=== PATIENT | female | born 1940 | race Caucasian/White ===

== ENCOUNTER 2016-10-11 00:11 | Emergency (ER) | payer OTHER, BC ==
[~2016-10-11] VITALS: Ht 167.6 cm; Wt 143.9 kg
[~2016-10-11 00:11] MED LIST: ALBUTEROL SULF8.5 GM IH; ALEVE220 MG PO; ASPIR 8181 M1 PO; ASPIR-LOW81 MG PO; ASTELIN137 MCG/0. NS; ASTEPRO 0.15%30 ML BOTH NARES; BACTRIM,SEPT1 TABLET PO; BIOTIN 5000MCG PO; BIOTIN2500 MCG PO; BROVANA15 MCG/2 M IH; BUDESONIDE0.5 MG/2 M IH; CALCITRATE + D1 EACH PO; CALCIUM CITRATE PO; CARDIZEM CD,CA240 MG PO; CARDIZEM CD240 MG PO; CARDIZEM SR120 MG PO; CENTRUM SILVER1 EAC3 PO; CITRACAL PO; CLARINEX5 MG PO; COUMADIN5 MG PO; DESYREL100 MG PO; DILAUDID2 MG PO; EFFEXOR XR150 MG PO; FLONASE16 G1 BOTH NARES; FLOVENT DISKUS1 DIS2 IH; GABAPENTIN100 MG PO; HYDROCHLOROTHIA25 MG PO; IBUPROFEN200 M1 PO; IMODIUM A-1 MG/7.5 M PO; LOMOTIL TABLET1 EACH PO; METOPROLOL TART25 MG PO; MULTIVITAMIN1 EAC2 PO; NITROSTAT0.4 MG SL; NORVASC5 MG PO; NYSTOP60 GM TP; PRILOSEC20 MG PO; PRILOSEC40 MG PO; PROAIR HFA8.5 GM IH; PROVENTIL,2.5 MG/3 M IH; PULMICORT0.5 MG/21 IH; SAM-E400 MG PO; SPIRIVA1 INHALATI IH; TESSALON PERLE100 MG PO; TRAZODONE HCL50 MG PO; VALTREX1000 MG PO; VENLAFAXINE HC150 MG PO; VITAMIN B-122500 MCG SL; VITAMIN B-125000 MCG SL; VITAMIN B-6100 MG PO; VITAMIN B12-FO1 EACH PO; VITAMIN B6; VITAMIN D-32000 UNI1 PO; VITAMIN D-32000 UNIT PO; VITAMIN D32000 UNI1 PO; VITAMIN E400 UNIT PO; WELLBUTRIN XL150 MG PO; WELLBUTRIN XL300 MG PO
[2016-10-11 01:10] LABS: HEMATOCRIT 46.6 % (36.0-46.0); MCH 27.8 PG (29.0-34.0); MCHC 31.1 G/DL (30.0-36.0); MCV 89.4 FL (83-99); MEAN PLAT.VOLUME 9.9 uM^3 (9.5-12.4); PLATELET COUNT 270 K/uL (156-360); RBC DIS.WIDTH-CV 15.2 % (11.8-14.6); RBC DIS.WIDTH-SD 49.4 % (39-53); RED BLOOD COUNT 5.21 M/uL (3.80-5.20); WHITE BLOOD COUNT 13.5 K/uL (4.1-10.2)
[2016-10-11 01:21] LABS: CHLORIDE 107 mEq/L (99-109); POTASSIUM 4.4 mEq/L (3.7-5.4); SODIUM 143 mEq/L (136-147)
[2016-10-11 01:23] LABS: GLUCOSE 112 mg/dL (70-99)
[2016-10-11 01:24] LABS: ANION GAP 9 MEQ/L (2-14)
[2016-10-11 01:25] LABS: TOTAL BILIRUBIN 0.2 mg/dL (0.0-1.0)
[2016-10-11 01:26] LABS: ALKALINE PHOSPHATASE 89 IU/L (3-129)
[2016-10-11 01:27] LABS: GFR ESTIMATE (CALCULATED) > 59 mL/min/
[2016-10-11 01:28] LABS: UREA NITROGEN (BUN) 24 mg/dL (9-23)
[2016-10-11 01:30] LABS: LIPASE 149 U/L (1.0-51.0)
[2016-10-11 02:43] LABS: ADD MIUA? NO; BILIRUBIN NEGATIVE; BLOOD NEGATIVE; COLOR YELLOW ((YELLOW)); GLUCOSE (STRIP) NEGATIVE; KETONES NEGATIVE; LEUKOCYTES NEGATIVE; NITRITE NEGATIVE; PROTEIN (STRIP) NEGATIVE; SPECIFIC GRAVITY 1.024 (1.000-1.030); UCUL ADDED? NO; UROBILINOGEN 0.2 MG/DL (0.2-1.0)
[2016-10-11] MEDS ORDERED: ZOFRAN4 MG PO (03:50)
[2016-10-11 04:43] VITALS: BP 148/83
== END 2016-10-11 04:34 | disposition home or self-care (01) ==
LOC: EME → EDBD 00:11 → EME 00:11
PROVIDERS: Emergency Medicine
DX: K85.90 Acute pancreatitis without necrosis or infection, unspecified (principal); I10 Essential (primary) hypertension; I25.2 Old myocardial infarction; Z98.84 Bariatric surgery status; Z96.651 Presence of right artificial knee joint; Z85.42 Personal history of malignant neoplasm of other parts of uterus; Z88.2 Allergy status to sulfonamides; Z88.1 Allergy status to other antibiotic agents
CPT/HCPCS: 74177; 80053; 81003; 83605; 83690; 85027; 86850; 86900; 86901; 93005; 99281; 99284; J2270; J2405; J7030

== ENCOUNTER 2017-08-25 20:18 | Inpatient (IN) | payer OTHER, BC ==
[~2017-08-25] VITALS: Ht 170.2 cm; Wt 140.1 kg
[~2017-08-25 20:18] MED LIST changes: +ZOFRAN4 MG PO
[2017-08-25 21:09] LABS: HEMATOCRIT 41.7 % (36.0-46.0); HEMOGLOBIN 13.1 G/DL (11.9-15.5); MCH 28.2 PG (29.0-34.0); MCHC 31.4 G/DL (30.0-36.0); MCV 89.9 FL (83-99); PLATELET COUNT 270 K/uL (156-360); RBC DIS.WIDTH-CV 14.1 % (11.8-14.6); RBC DIS.WIDTH-SD 46.7 % (39-53); RED BLOOD COUNT 4.64 M/uL (3.80-5.20); WHITE BLOOD COUNT 6.7 K/uL (4.1-10.2)
[2017-08-25 21:23] LABS: CHLORIDE 101 mEq/L (99-109); POTASSIUM 4.6 mEq/L (3.7-5.4); SODIUM 135 mEq/L (136-147)
[2017-08-25 21:24] LABS: GLUCOSE 99 mg/dL (70-99)
[2017-08-25 21:28] LABS: CREATININE 0.7 mg/dL (0.6-1.3); GFR ESTIMATE (CALCULATED) > 59 mL/min/
[2017-08-25 21:29] LABS: UREA NITROGEN (BUN) 13 mg/dL (9-23)
[2017-08-25 23:34] LABS: APPEARANCE CLEAR ((CLEAR)); BILIRUBIN NEGATIVE; BLOOD NEGATIVE; COLOR YELLOW ((YELLOW)); GLUCOSE (STRIP) NEGATIVE; KETONES NEGATIVE; LEUKOCYTES NEGATIVE; NITRITE NEGATIVE; PROTEIN (STRIP) NEGATIVE; SPECIFIC GRAVITY 1.016 (1.000-1.030); UCUL ADDED? NO; UROBILINOGEN 0.2 MG/DL (0.2-1.0)
[2017-08-25] MEDS ORDERED: BIOTIN 5000MCG PO (23:44)
[2017-08-25] MEDS ORDERED: CELEBREX200 MG PO (23:45)
[2017-08-25] MEDS ORDERED: CENTRUM SILVER1 EAC3 PO (23:45)
[2017-08-25] MEDS ORDERED: WELLBUTRIN XL300 MG PO (23:46)
[2017-08-25] MEDS ORDERED: [UNRECOGNIZED DRUG - OTHER] PO (23:48)
[2017-08-25] MEDS ORDERED: WELLBUTRIN XL150 MG PO (23:49)
[2017-08-25] MEDS ORDERED: ALEVE220 MG PO (23:50)
[2017-08-25] MEDS ORDERED: IRON18 MG PO (23:51)
[2017-08-25] MEDS ORDERED: EFFEXOR XR150 MG PO (23:52)
[2017-08-25] MEDS ORDERED: ADULT LOW DOSE81 M1 PO (23:52)
[2017-08-25] MEDS ORDERED: B-COMPLEX (23:53)
[2017-08-25] MEDS ORDERED: PRILOSEC20 MG PO (23:54)
[2017-08-25] MEDS ORDERED: DESYREL100 MG PO (23:54)
[2017-08-25] MEDS ORDERED: NYSTOP60 GM TP (23:55)
[2017-08-25] MEDS ORDERED: TYLENOL ARTHRI650 MG PO (23:56)
[2017-08-25] MEDS ORDERED: VITAMIN E1000 UNI1 PO (23:57)
[2017-08-25] MEDS ORDERED: ASTEPRO 0.15%30 ML BOTH NARES (23:58)
[2017-08-25] MEDS ORDERED: FLONASE16 G1 BOTH NARES (23:58)
[2017-08-25] MEDS ORDERED: PULMICORT0.5 MG/21 IH (23:59)
[2017-08-25] MEDS ORDERED: BROVANA15 MCG/2 M IH (23:59)
[2017-08-26] MEDS ORDERED: HYDROCHLOROTHIA25 MG PO
[2017-08-26] MEDS ORDERED: VITAMIN B-125000 MCG SL (00:02)
[2017-08-26] MEDS ORDERED: VITAMIN D31000 UNIT PO (00:03)
[2017-08-26] MEDS ORDERED: CALCIUM ANTAC1000 MG PO (00:06)
[2017-08-26] MEDS ORDERED: LOPRESSOR25 MG PO (00:07)
[2017-08-26] MEDS ORDERED: TESSALON PERLE100 MG PO (00:08)
[2017-08-26] MEDS ORDERED: SPIRIVA18 MCG IH (00:08)
[2017-08-26] MEDS ORDERED: AZITHROMYCIN250 MG PO (00:12)
[2017-08-26] MEDS ORDERED: NITROFURANTOIN100 M3 PO (00:13)
[2017-08-26 07:11] LABS: BASOPHIL (%) 0.2 % (0-1); EOSINOPHIL (%) 0 % (0-5); HEMATOCRIT 42.7 % (36.0-46.0); HEMOGLOBIN 13.4 G/DL (11.9-15.5); IMMATURE GRANULOCYTE (%) 0.4 % (0.0-0.7); LYMPHOCYTE (%) 10.8 % (15-42); LYMPHOCYTE COUNT 0.6 K/uL (1.0-2.8); MCHC 31.4 G/DL (30.0-36.0); MCV 89.1 FL (83-99); MONOCYTE (%) 2.3 % (3-12); MONOCYTE COUNT 0.1 K/uL (0-0.8); NEUTROPHIL (%) 86.3 % (45-76); NEUTROPHIL COUNT 4.5 K/uL (1.8-6.4); PLATELET COUNT 260 K/uL (156-360); RBC DIS.WIDTH-SD 45.5 % (39-53); RED BLOOD COUNT 4.79 M/uL (3.80-5.20); WHITE BLOOD COUNT 5.3 K/uL (4.1-10.2)
[2017-08-26 07:40] LABS: CHLORIDE 102 MEQ/L (99-109); CREATININE 0.7 MG/DL (0.6-1.3); GFR ESTIMATE (CALCULATED) > 59 mL/min/; POTASSIUM 4.1 MEQ/L (3.7-5.4); SODIUM 140 MEQ/L (136-147); UREA NITROGEN (BUN) 12 mg/dL (9-23)
[2017-08-26 07:43] LABS: GLUCOSE 168 mg/dL (70-99)
[2017-08-26 14:15] VITALS: BP 117/60
[2017-08-26 21:18] VITALS: BP 131/61
[2017-08-26 23:38] VITALS: BP 129/69
[2017-08-27 05:13] VITALS: BP 120/65
[2017-08-27 06:28] LABS: BASOPHIL (%) 0.3 % (0-1); EOSINOPHIL (%) 0.8 % (0-5); EOSINOPHIL COUNT 0.1 K/uL (0-0.3); HEMATOCRIT 42.4 % (36.0-46.0); IMMATURE GRANULOCYTE (%) 0.1 % (0.0-0.7); LYMPHOCYTE (%) 29.5 % (15-42); LYMPHOCYTE COUNT 2.1 K/uL (1.0-2.8); MCHC 30.7 G/DL (30.0-36.0); MCV 91.4 FL (83-99); MONOCYTE (%) 10.2 % (3-12); MONOCYTE COUNT 0.7 K/uL (0-0.8); NEUTROPHIL (%) 59.1 % (45-76); NEUTROPHIL COUNT 4.2 K/uL (1.8-6.4); PLATELET COUNT 264 K/uL (156-360); RBC DIS.WIDTH-CV 14.3 % (11.8-14.6); RBC DIS.WIDTH-SD 48.3 % (39-53); RED BLOOD COUNT 4.64 M/uL (3.80-5.20); WHITE BLOOD COUNT 7.1 K/uL (4.1-10.2)
[2017-08-27 06:52] LABS: ALBUMIN 3.3 G/DL (3.2-4.8); ALKALINE PHOSPHATASE 71 IU/L (3-129); ALT (GPT) 17 IU/L (3-49); AST (GOT) 21 IU/L (2-34); CHLORIDE 106 MEQ/L (99-109); CREATININE 0.8 MG/DL (0.6-1.3); GFR ESTIMATE (CALCULATED) > 59 mL/min/; POTASSIUM 4.1 MEQ/L (3.7-5.4); SODIUM 145 MEQ/L (136-147); TOTAL BILIRUBIN 0.3 MG/DL (0.0-1.0); TOTAL PROTEIN 5.8 G/DL (6.4-8.3)
[2017-08-27 06:53] LABS: GLUCOSE 95 mg/dL (70-99); UREA NITROGEN (BUN) 21 mg/dL (9-23)
[2017-08-27 08:42] VITALS: BP 133/73
[2017-08-27 11:00] VITALS: BP 117/78
[2017-08-27 15:00] VITALS: BP 128/79
[2017-08-27 19:47] VITALS: BP 145/67
[2017-08-27 22:45] VITALS: BP 121/56
[2017-08-28] VITALS (7 sets, daily range): BP systolic 119–145; BP diastolic 62–74
[2017-08-28 06:20] LABS: HEMATOCRIT 42.5 % (36.0-46.0); HEMOGLOBIN 12.8 G/DL (11.9-15.5); MCH 27.9 PG (29.0-34.0); MCHC 30.1 G/DL (30.0-36.0); MCV 92.6 FL (83-99); PLATELET COUNT 239 K/uL (156-360); RBC DIS.WIDTH-CV 14.3 % (11.8-14.6); RBC DIS.WIDTH-SD 48.6 % (39-53); RED BLOOD COUNT 4.59 M/uL (3.80-5.20); WHITE BLOOD COUNT 6.1 K/uL (4.1-10.2)
[2017-08-28 06:51] LABS: CHLORIDE 106 MEQ/L (99-109); CREATININE 0.7 MG/DL (0.6-1.3); GFR ESTIMATE (CALCULATED) > 59 mL/min/; GLUCOSE 78 mg/dL (70-99); POTASSIUM 4.4 MEQ/L (3.7-5.4); SODIUM 144 MEQ/L (136-147); UREA NITROGEN (BUN) 20 mg/dL (9-23)
[2017-08-28 07:06] LABS: BASOPHIL (%) 0.7 % (0-1); EOSINOPHIL (%) 4.3 % (0-5); EOSINOPHIL COUNT 0.3 K/uL (0-0.3); IMMATURE GRANULOCYTE (%) 0.2 % (0.0-0.7); LYMPHOCYTE (%) 42.6 % (15-42); LYMPHOCYTE COUNT 2.6 K/uL (1.0-2.8); MONOCYTE (%) 9.8 % (3-12); MONOCYTE COUNT 0.6 K/uL (0-0.8); NEUTROPHIL (%) 42.4 % (45-76); NEUTROPHIL COUNT 2.6 K/uL (1.8-6.4)
[2017-08-29 03:37] VITALS: BP 138/75
[2017-08-29 05:58] LABS: BASOPHIL (%) 0.5 % (0-1); EOSINOPHIL (%) 4.3 % (0-5); EOSINOPHIL COUNT 0.3 K/uL (0-0.3); HEMATOCRIT 40.1 % (36.0-46.0); IMMATURE GRANULOCYTE (%) 0.3 % (0.0-0.7); LYMPHOCYTE (%) 35.8 % (15-42); LYMPHOCYTE COUNT 2.3 K/uL (1.0-2.8); MCH 27.2 PG (29.0-34.0); MCHC 29.9 G/DL (30.0-36.0); MCV 90.9 FL (83-99); MONOCYTE (%) 7.7 % (3-12); MONOCYTE COUNT 0.5 K/uL (0-0.8); NEUTROPHIL (%) 51.4 % (45-76); NEUTROPHIL COUNT 3.3 K/uL (1.8-6.4); PLATELET COUNT 257 K/uL (156-360); RED BLOOD COUNT 4.41 M/uL (3.80-5.20); WHITE BLOOD COUNT 6.5 K/uL (4.1-10.2)
[2017-08-29 06:24] LABS: ALBUMIN 3.1 G/DL (3.2-4.8); ALKALINE PHOSPHATASE 68 IU/L (3-129); ALT (GPT) 22 IU/L (3-49); AST (GOT) 19 IU/L (2-34); CHLORIDE 105 MEQ/L (99-109); CREATININE 0.7 MG/DL (0.6-1.3); GFR ESTIMATE (CALCULATED) > 59 mL/min/; GLUCOSE 90 mg/dL (70-99); POTASSIUM 4.4 MEQ/L (3.7-5.4); SODIUM 144 MEQ/L (136-147); TOTAL BILIRUBIN 0.3 MG/DL (0.0-1.0); TOTAL PROTEIN 5.4 G/DL (6.4-8.3); UREA NITROGEN (BUN) 17 mg/dL (9-23)
[2017-08-29 07:47] VITALS: BP 173/72
[2017-08-29 11:00] VITALS: BP 153/70
[2017-08-29] MEDS ORDERED: DOXYCYCLINE HY100 M3 PO (13:58)
[2017-08-29 16:04] VITALS: BP 154/70
== END 2017-08-29 17:50 | disposition home health service (06) | DRG 193 ==
LOC: EME 20:18 → EDOF 22:44 → ENRESERV 22:46 → 5EAST 08-26 14:11
PROVIDERS: Emergency Medicine; Hospitalist; Nurse Practitioner Adult Health
DX: J15.9 Unspecified bacterial pneumonia (principal); J44.0 Chronic obstructive pulmonary disease with (acute) lower respiratory infection; J96.01 Acute respiratory failure with hypoxia; J44.1 Chronic obstructive pulmonary disease with (acute) exacerbation; I10 Essential (primary) hypertension; E66.9 Obesity, unspecified; Z68.42 Body mass index [BMI] 45.0-49.9, adult; I25.10 Atherosclerotic heart disease of native coronary artery without angina pectoris; I25.2 Old myocardial infarction; F32.9 Major depressive disorder, single episode, unspecified; Z85.42 Personal history of malignant neoplasm of other parts of uterus; Z90.710 Acquired absence of both cervix and uterus; Z96.651 Presence of right artificial knee joint; Z98.84 Bariatric surgery status; Z87.891 Personal history of nicotine dependence; Z87.440 Personal history of urinary (tract) infections
CPT/HCPCS: 71046; 71275; 80048; 80053; 81003; 82948; 83036; 83880; 85025; 85027; 85379; 87449; 87502; 94640; 94640 76; 94760; 94799; 99202; 99281; 99285; J0696; J1100; J1644; J7030; J7050; J7512; J7644